=== PATIENT | male | born 1965 | race African-American/Black ===

== ENCOUNTER 2021-06-09 10:15 | Inpatient (IN) | payer OTHER ==
[~2021-06-09] VITALS: Ht 175.3 cm; Wt 88.3 kg
[~2021-06-09 10:15] MED LIST: RISPERDOL; SERT-158 PO
[2021-06-09] MEDS ORDERED: 0.9% SODIUM CHLORIDE 10 ML SYRINGE IVP PRN ×2 (10:45→15:45)
[2021-06-09 11:11] LABS: BASOPHILS % (AUTO) 0.5 % (0.0-2.0); EOSINOPHILS % (AUTO) 0 % (1.0-6.0); HEMATOCRIT 36.4 % (41-53); HEMOGLOBIN 12.4 g/dL (13.5-17.5); LYMPHOCYTES # (AUTO) 0.6 K/uL (1.0-4.8); LYMPHOCYTES % (AUTO) 11.7 % (22.0-44.0); MEAN CORPUSCULAR HEMOGLOBIN 29.6 pg (26.0-34.0); MEAN CORPUSCULAR HGB CONC 34.1 G/dL (31.0-37.0); MEAN CORPUSCULAR VOLUME 87 fL (80-100); MONOCYTES # (AUTO) 0.3 K/uL (0.1-1.0); MONOCYTES % (AUTO) 4.8 % (2.0-9.0); NEUTROPHILS # (AUTO) 4.4 K/uL (1.8-7.7); PLATELET COUNT (AUTO) 183 K/uL (150-450); RED BLOOD CELL COUNT(AUTO) 4.19 MIL/uL (4.50-5.90); RED CELL DISTRIBUTION WIDTH 13.4 % (11.5-14.5)
[2021-06-09 11:11] LABS: COVID AG,FIA SOURCE NASAL SWAB
[2021-06-09 11:24] LABS: D-DIMER 1.18 mg/L FEU (0.00-0.50); INR 1.1 (0.9-1.1); PROTHROMBIN TIME 11.6 SEC (9.4-11.6)
[2021-06-09] MEDS ORDERED: CefTRIAXone 1 GM/DEXTROSE 50 ML IV ONE (12:00)
[2021-06-09] MEDS: AZITHROMYCIN 500 MG/NS 250 ML IV ONE ×2 (12:04→12:40)
[2021-06-09 12:13] LABS: CALCIUM, TOTAL 8.5 mg/dL (8.8-10.5); CREATININE 1.58 mg/dL (0.60-1.30); POTASSIUM 4.2 mmol/L (3.5-5.1)
[2021-06-09 12:19] LABS: BILIRUBIN,TOTAL 0.6 mg/dL (0.1-1.0); TOTAL PROTEIN, SERUM 7.1 g/dL (6.4-8.2)
[2021-06-09 12:20] LABS: LACTIC ACID 1.3 mmol/L (0.4-2.0)
[2021-06-09] MEDS: VANCOMYCIN HCL 1 GM/D5% WATER 200 ML IV ONE ×2 (12:21→13:29)
[2021-06-09 12:27] LABS: INFLUENZA TYPE A NEGATIVE FOR TYPE A (NEGATIVE); INFLUENZA TYPE B NEGATIVE FOR TYPE B (NEGATIVE)
[2021-06-09] MEDS ORDERED: IOHEXOL 350 MG/ML 100 ML VIAL ONE (12:35)
[2021-06-09] MEDS ORDERED: SODIUM CHLORIDE 0.9% 100 ML ONE (12:35)
[2021-06-09] MEDS ORDERED: SODIUM CHLORIDE 0.9% 1,000 ML IV ONE (13:00)
[2021-06-09 15:22] LABS: APPEARANCE,URINE CLEAR (CLEAR); BILIRUBIN,URINE NEGATIVE (NEGATIVE); GLUCOSE, URINE (UA) NEGATIVE (NEGATIVE); KETONES,URINE TRACE mg/dL (NEGATIVE); LEUKOCYTE ESTERASE ,URINE NEGATIVE (NEGATIVE); NITRATE,URINE NEGATIVE (NEGATIVE); OCCULT BLOOD,URINE NEGATIVE (NEGATIVE); PH,URINE 5.5 (5.0-8.0); PROTEIN,URINE NEGATIVE (NEGATIVE)
[2021-06-09] MEDS ORDERED: ACETAMINOPHEN 325 MG TABLET PO PRN ×2 (15:45→17:00)
[2021-06-09 16:45] VITALS: BP 119/74
[2021-06-09] MEDS ORDERED: BISACODYL 10 MG RECTAL RECTAL SUPPOSITORY PR PRN (17:00)
[2021-06-09] MEDS ORDERED: ONDANSETRON HCL 4 MG/2 ML VIAL IVP PRN (17:00)
[2021-06-09] MEDS ORDERED: *CLINICAL-LEVOFLOXACIN IVPB DOSING CLINICAL ONE (17:00)
[2021-06-09] MEDS ORDERED: MAGNESIUM HYDROXIDE SUSPENSION 30 ML UDCUP PO PRN (17:00)
[2021-06-09] MEDS ORDERED: ZOLPIDEM TARTRATE 5 MG TABLET PO PRN (17:00)
[2021-06-09] MEDS ORDERED: MORPHINE SULFATE 2 MG/ML SYRINGE IVP PRN (17:00)
[2021-06-09 17:46] LABS: C-REACTIVE PROTEIN QUANT 21.58 mg/dL (0.00-0.30)
[2021-06-09 19:13] LABS: D-DIMER 1.4 mg/L FEU (0.00-0.50)
[2021-06-09 20:30] VITALS: BP 144/67
[2021-06-09] MEDS: DOCUSATE SODIUM 100 MG CAPSULE PO SCH (21:21)
[2021-06-09 23:40] VITALS: BP 141/70
[2021-06-10] MEDS: HEPARIN SODIUM,PORCINE 5,000 UNITS/ML VIAL SQ SCH ×3 (00:22→15:34)
[2021-06-10 04:00] VITALS: BP 133/64
[2021-06-10] MEDS: LEVOFLOXACIN 750 MG/D5% WATER 150 ML IV SCH (05:59)
[2021-06-10 06:45] LABS: HEMATOCRIT 35.4 % (41-53); HEMOGLOBIN 12.6 g/dL (13.5-17.5); MEAN CORPUSCULAR HEMOGLOBIN 30.6 pg (26.0-34.0); MEAN CORPUSCULAR HGB CONC 35.6 G/dL (31.0-37.0); MEAN CORPUSCULAR VOLUME 86 fL (80-100); PLATELET COUNT (AUTO) 190 K/uL (150-450); RED BLOOD CELL COUNT(AUTO) 4.11 MIL/uL (4.50-5.90); RED CELL DISTRIBUTION WIDTH 13.7 % (11.5-14.5)
[2021-06-10 07:05] LABS: ALANINE AMINOTRANSFERASE 19 U/L (12-78); ALBUMIN 2.6 g/dL (3.4-5.0); ALKALINE PHOSPHATASE 84 U/L (46-116); ANION GAP 9 mmol/L (8-16); ASPARTATE AMINOTRANSFERASE 19 U/L (15-37); BILIRUBIN,TOTAL 0.6 mg/dL (0.1-1.0); CALCIUM, TOTAL 8.5 mg/dL (8.8-10.5); CARBON DIOXIDE 28 mmol/L (22-29); CHLORIDE 97 mmol/L (98-107); CREATININE 1.37 mg/dL (0.60-1.30); GLOMERULAR FILTR. RATE CALC > 60 mL/min (>60); GLUCOSE,RANDOM 104 mg/dL (70-110); POTASSIUM 3.6 mmol/L (3.5-5.1); SODIUM SERUM 134 mmol/L (136-145); TOTAL PROTEIN, SERUM 7.3 g/dL (6.4-8.2); UREA NITROGEN, BLOOD 21 mg/dL (7-18)
[2021-06-10 07:13] VITALS: BP 108/72
[2021-06-10 08:20] LABS: BAND NEUTROPHILS % (MANUAL) 37 % (0-5); LYMPHOCYTES % (MANUAL) 14 % (22-44); MONOCYTES % (MANUAL) 1 % (2-9); SEGMENTED NEUTROPHILS % 48 % (40-70)
[2021-06-10] MEDS: DOCUSATE SODIUM 100 MG CAPSULE PO SCH ×2 (08:21→22:05)
[2021-06-10] MEDS: SERTRALINE HCL 50 MG TABLET PO SCH (08:21)
[2021-06-10] MEDS: PANTOPRAZOLE SODIUM 40 MG DR TABLET PO SCH (08:21)
[2021-06-10] MEDS: HYDROCODONE/ACETAMINOPHEN 5-325 MG TABLET PO PRN (11:15)
[2021-06-10 11:16] VITALS: BP 117/73
[2021-06-10] MEDS: HYDROCODONE/CHLORPHEN POLIS 10-8 MG/5 ML ORAL.SYG PO PRN ×2 (12:02→22:05)
[2021-06-10 15:29] VITALS: BP 108/74
[2021-06-10 20:01] LABS: GLUCOMETER DEV NAME(LOC) 5N.3; GLUCOSE,POINT OF CARE 137 MG/DL (70-110)
[2021-06-10 20:07] VITALS: BP 129/83
[2021-06-11 00:12] VITALS: BP 97/67
[2021-06-11] MEDS: HEPARIN SODIUM,PORCINE 5,000 UNITS/ML VIAL SQ SCH ×4 (00:20→23:35)
[2021-06-11] MEDS: LEVOFLOXACIN 750 MG/D5% WATER 150 ML IV SCH (05:07)
[2021-06-11 05:59] VITALS: BP 115/60
[2021-06-11 08:07] VITALS: BP 108/62
[2021-06-11] MEDS: PANTOPRAZOLE SODIUM 40 MG DR TABLET PO SCH (08:11)
[2021-06-11] MEDS: DOCUSATE SODIUM 100 MG CAPSULE PO SCH ×2 (08:11→21:10)
[2021-06-11] MEDS: SERTRALINE HCL 50 MG TABLET PO SCH (08:12)
[2021-06-11] MEDS ORDERED: DEXAMETHASONE 4 MG TABLET PO SCH (09:00)
[2021-06-11 11:16] VITALS: BP 126/79
[2021-06-11 16:15] VITALS: BP 128/70
[2021-06-11 21:08] VITALS: BP 116/75
[2021-06-11] MEDS: HYDROCODONE/CHLORPHEN POLIS 10-8 MG/5 ML ORAL.SYG PO PRN (21:10)
[2021-06-12 01:43] VITALS: BP 149/68
[2021-06-12] MEDS: HYDROCODONE/ACETAMINOPHEN 5-325 MG TABLET PO PRN (03:57)
[2021-06-12 04:47] VITALS: BP 127/80
[2021-06-12] MEDS: LEVOFLOXACIN 750 MG/D5% WATER 150 ML IV SCH (05:01)
[2021-06-12 07:22] VITALS: BP 133/93
[2021-06-13 15:06] LABS: LEGIONELLA PNEUMO AG URINE Negative (Negative)
[2021-06-13 16:07] LABS: S PNEUMO SOURCE Urine; STREP PNEUMONIAE AG URINE Negative (Negative)
== END 2021-06-12 07:40 | disposition left against medical advice (07) | DRG 139 ==
LOC: EMS 10:35 → 5N 14:53
PROVIDERS: ADMIT Internal Medicine; ATTEND Internal Medicine
DX: J18.9 Pneumonia, unspecified organism (principal); J96.01 Acute respiratory failure with hypoxia; R65.11 Systemic inflammatory response syndrome (SIRS) of non-infectious origin with acute organ dysfunction; D68.59 Other primary thrombophilia; E46 Unspecified protein-calorie malnutrition; J47.0 Bronchiectasis with acute lower respiratory infection; N17.9 Acute kidney failure, unspecified; Z20.822 Contact with and (suspected) exposure to COVID-19; I10 Essential (primary) hypertension; Z53.21 Procedure and treatment not carried out due to patient leaving prior to being seen by health care provider; Z53.29 Procedure and treatment not carried out because of patient's decision for other reasons; Z78.9 Other specified health status; Z87.891 Personal history of nicotine dependence; Z68.28 Body mass index [BMI] 28.0-28.9, adult; Z79.899 Other long term (current) drug therapy
CPT/HCPCS: 71045; 71275; 80053; 81003; 82550; 82728; 82962; 83605; 83615; 83880; 84145; 84484; 85025; 85379; 85384; 85610; 85730; 86140; 87015; 87040; 87206; 87449; 87804; 87899; 93005; 93970; 99285; J0456; J0696; J1644; J1956; J2270; J3370; J7050; J8540; Q9967; 36415-L1; 36415-TC; U0003

== ENCOUNTER 2021-06-12 16:54 | Inpatient (IN) | payer OTHER ==
[~2021-06-12] VITALS: Ht 180.3 cm; Wt 84.1 kg
[2021-06-12 20:13] LABS: COVID AG,FIA SOURCE NASOPHARYNGEAL
[2021-06-12] MEDS ORDERED: *CLINICAL-LEVOFLOXACIN IVPB DOSING CLINICAL ONE (20:45)
[2021-06-12] MEDS ORDERED: ONDANSETRON HCL 4 MG/2 ML VIAL IVP PRN (21:00)
[2021-06-12] MEDS ORDERED: MAGNESIUM HYDROXIDE SUSPENSION 30 ML UDCUP PO PRN (21:00)
[2021-06-12] MEDS ORDERED: ZOLPIDEM TARTRATE 5 MG TABLET PO PRN (21:00)
[2021-06-12] MEDS ORDERED: ACETAMINOPHEN 325 MG TABLET PO PRN (21:00)
[2021-06-12 21:12] VITALS: BP 136/87
[2021-06-12] MEDS ORDERED: LEVOFLOXACIN 750 MG/D5% WATER 150 ML IV ONE (21:15)
[2021-06-12] MEDS ORDERED: INFLUENZA VIRUS VACCINE QVS 2021-22 (6MO+)/PF 60 MCG/0.5 ML SYRINGE IM. ONE (22:00)
[2021-06-12] MEDS ORDERED: SODIUM CHLORIDE 0.9% 500 ML IV ONE (22:36)
[2021-06-13] MEDS: BENZONATATE 100 MG CAPSULE PO PRN (03:23)
[2021-06-13] MEDS: OxyCODONE HCL/ACETAMINOPHEN 5-325 MG TABLET PO PRN (03:27)
[2021-06-13 04:28] VITALS: BP 113/62
[2021-06-13 08:46] VITALS: BP 145/81
[2021-06-13 09:56] LABS: ANION GAP 6 mmol/L (8-16); CARBON DIOXIDE 29 mmol/L (22-29); CHLORIDE 102 mmol/L (98-107); GLOMERULAR FILTR. RATE CALC > 60 mL/min (>60); GLUCOSE,RANDOM 108 mg/dL (70-110); POTASSIUM 3.5 mmol/L (3.5-5.1); SODIUM SERUM 137 mmol/L (136-145); UREA NITROGEN, BLOOD 16 mg/dL (7-18)
[2021-06-13] MEDS: FAMOTIDINE 20 MG TABLET PO SCH (10:54)
[2021-06-13] MEDS ORDERED: 0.9% SODIUM CHLORIDE 5 ML NEB SOLUTION NEB ONE (12:09)
[2021-06-13] MEDS ORDERED: SODIUM CHLORIDE 3% 15 ML NEB SOLUTION NEB ONE (12:09)
[2021-06-13 12:53] VITALS: BP 126/79
[2021-06-13 20:29] VITALS: BP 129/86
[2021-06-13] MEDS ORDERED: LEVOFLOXACIN 750 MG/D5% WATER 150 ML IV SCH (22:00)
[2021-06-14 01:46] VITALS: BP 145/87
[2021-06-14 04:54] VITALS: BP 128/76
[2021-06-14 08:26] VITALS: BP 129/82
[2021-06-14] MEDS: FAMOTIDINE 20 MG TABLET PO SCH (08:56)
[2021-06-14] MEDS: BENZONATATE 100 MG CAPSULE PO PRN (09:06)
[2021-06-14] MEDS: OxyCODONE HCL/ACETAMINOPHEN 5-325 MG TABLET PO PRN (09:06)
[2021-06-14 14:07] VITALS: BP 132/74
== END 2021-06-14 16:30 | disposition left against medical advice (07) | DRG 139 ==
LOC: EMS 16:57 → 6S 20:42
PROVIDERS: ADMIT Internal Medicine; ATTEND Internal Medicine
DX: J18.9 Pneumonia, unspecified organism (principal); J96.01 Acute respiratory failure with hypoxia; R65.11 Systemic inflammatory response syndrome (SIRS) of non-infectious origin with acute organ dysfunction; N17.9 Acute kidney failure, unspecified; D68.59 Other primary thrombophilia; Z20.822 Contact with and (suspected) exposure to COVID-19; J47.0 Bronchiectasis with acute lower respiratory infection
CPT/HCPCS: 80048; 87015; 87081; 87206; 87556; 93005; 94640; 99285; J1956; J7040; 36415-L1; 36415-TC

== ENCOUNTER 2024-08-25 02:29 | Inpatient (IN) | payer OTHER ==
[~2024-08-25] VITALS: Ht 180.3 cm; Wt 84.0 kg
[~2024-08-25 02:29] MED LIST changes: +LEVE-71 PO; +LOSA100T59 PO; -RISPERDOL; -SERT-158 PO
[2024-08-25] MEDS ORDERED: VANCOMYCIN 1GM/WATER(PEG/NADA) 200 ML IV ONE (02:45)
[2024-08-25 03:20] LABS: BASOPHILS % (AUTO) 0.6 % (0.0-2.0); EOSINOPHILS % (AUTO) 2.9 % (1.0-6.0); HEMATOCRIT 36.3 % (41-53); LYMPHOCYTES # (AUTO) 1.5 K/uL (1.0-4.8); LYMPHOCYTES % (AUTO) 36.6 % (22.0-44.0); MEAN CORPUSCULAR HEMOGLOBIN 28.6 pg (26.0-34.0); MEAN CORPUSCULAR HGB CONC 32.9 G/dL (31.0-37.0); MEAN CORPUSCULAR VOLUME 87 fL (80-100); MONOCYTES # (AUTO) 0.4 K/uL (0.1-1.0); MONOCYTES % (AUTO) 10.3 % (2.0-9.0); NEUTROPHILS % (AUTO) 49.6 % (40.0-70.0); PLATELET COUNT (AUTO) 317 K/uL (150-450); RED BLOOD CELL COUNT(AUTO) 4.18 MIL/uL (4.50-5.90); RED CELL DISTRIBUTION WIDTH 14.5 % (11.5-14.5); WHITE BLOOD COUNT (AUTO) 4.1 K/uL (4.5-11.0)
[2024-08-25 03:28] LABS: ANION GAP 6 mmol/L (8-16); CALCIUM, TOTAL 9.3 mg/dL (8.8-10.5); CARBON DIOXIDE 31 mmol/L (22-29); CHLORIDE 101 mmol/L (98-107); CREATININE 0.99 mg/dL (0.60-1.30); GLOMERULAR FILTR. RATE CALC > 60 mL/min (>60); GLUCOSE,RANDOM 95 mg/dL (70-110); POTASSIUM 3.9 mmol/L (3.5-5.1); SODIUM SERUM 138 mmol/L (136-145); UREA NITROGEN, BLOOD 9 mg/dL (7-18)
[2024-08-25 03:37] LABS: LACTIC ACID 0.7 mmol/L (0.4-2.0)
[2024-08-25] MEDS: SODIUM CHLORIDE 0.9% 1,000 ML IV ONE ×2 (04:06→11:12)
[2024-08-25] MEDS: VANCOMYCIN HCL 1 GM/D5% WATER 200 ML IV ONE (04:07)
[2024-08-25] MEDS ORDERED: IOHEXOL 350 MG/ML 100 ML VIAL ONE (06:02)
[2024-08-25] MEDS: NITROGLYCERIN 2% (1 GM=INCH) OINTMENT PACKET TP ONE (07:33)
[2024-08-25] MEDS: AmLODIPine BESYLATE 10 MG TABLET PO ONE (07:34)
[2024-08-25] MEDS: LevETIRAcetam 500 MG TABLET PO ONE ×2 (07:34→08:30)
[2024-08-25] MEDS: LABETALOL HCL 5 MG/ML 20 ML VIAL IVP ONE (07:36)
[2024-08-25 07:43] LABS: PH,URINE DRUG SCREEN 7.5 (5.0-8.0)
[2024-08-25 07:49] LABS: AMPHET/METH SCREEN,URINE POSITIVE (NEGATIVE); BARBITURATE SCREEN, URINE NEGATIVE (NEGATIVE); BENZODIAZEPINES SCREEN,URINE NEGATIVE (NEGATIVE); CANNABINOID SCREEN,URINE POSITIVE (NEGATIVE); COCAINE SCREEN,URINE NEGATIVE (NEGATIVE); METHADONE SCREEN, URINE NEGATIVE (NEGATIVE); OPIATE SCREEN,URINE POSITIVE (NEGATIVE); PHENCYCLIDINE SCREEN,URINE NEGATIVE (NEGATIVE)
[2024-08-25 07:59] LABS: ALCOHOL, URINE DRUG SCREEN NEGATIVE (NEGATIVE)
[2024-08-25] MEDS: ALLOPURINOL 300 MG TABLET PO ONE (08:31)
[2024-08-25] MEDS ORDERED: MAGNESIUM HYDROXIDE SUSPENSION 30 ML UDCUP PO PRN (10:00)
[2024-08-25] MEDS ORDERED: ACETAMINOPHEN 325 MG TABLET PO PRN (10:00)
[2024-08-25] MEDS ORDERED: MORPHINE SULFATE 2 MG/ML SYRINGE IVP PRN (10:00)
[2024-08-25] MEDS ORDERED: BISACODYL 10 MG RECTAL RECTAL SUPPOSITORY PR PRN (10:00)
[2024-08-25] MEDS ORDERED: ONDANSETRON HCL 4 MG/2 ML VIAL IVP PRN (10:00)
[2024-08-25] MEDS ORDERED: ZOLPIDEM TARTRATE 5 MG TABLET PO PRN (10:00)
[2024-08-25 10:44] VITALS: BP 137/76; PULSE 79; RESP 18; TEMP 97.6; O2SAT 97
[2024-08-25] MEDS: LevETIRAcetam 500 MG TABLET PO SCH (11:12)
[2024-08-25] MEDS: VANCOMYCIN 750 MG/WATER(PEG) 150 ML IV ONE (11:46)
[2024-08-25] MEDS: HEPARIN SODIUM,PORCINE 5,000 UNITS/ML VIAL SQ SCH (16:23)
[2024-08-25] MEDS: VANCOMYCIN 1.25 GM/WATER(PEG) 250 ML IV SCH (20:16)
[2024-08-25] MEDS: DOCUSATE SODIUM 100 MG CAPSULE PO SCH (20:16)
[2024-08-25 20:17] VITALS: BP 156/102; PULSE 96; RESP 18; TEMP 98.1; O2SAT 97
[2024-08-25 23:19] VITALS: BP 177/100; PULSE 80; RESP 18; TEMP 98; O2SAT 97
[2024-08-25] MEDS: CloNIDine HCL 0.1 MG TABLET PO PRN (23:20)
[2024-08-26 04:48] VITALS: BP 154/98; PULSE 90; RESP 17; TEMP 97.8; O2SAT 98
[2024-08-26 07:35] LABS: BASOPHILS % (AUTO) 1.2 % (0.0-2.0); HEMATOCRIT 36.8 % (41-53); HEMOGLOBIN 12.2 g/dL (13.5-17.5); LYMPHOCYTES # (AUTO) 1.7 K/uL (1.0-4.8); LYMPHOCYTES % (AUTO) 38.5 % (22.0-44.0); MEAN CORPUSCULAR HEMOGLOBIN 28.7 pg (26.0-34.0); MEAN CORPUSCULAR VOLUME 87 fL (80-100); MONOCYTES # (AUTO) 0.4 K/uL (0.1-1.0); MONOCYTES % (AUTO) 8.3 % (2.0-9.0); NEUTROPHILS # (AUTO) 2.1 K/uL (1.8-7.7); PLATELET COUNT (AUTO) 307 K/uL (150-450); RED BLOOD CELL COUNT(AUTO) 4.24 MIL/uL (4.50-5.90); RED CELL DISTRIBUTION WIDTH 14.5 % (11.5-14.5); WHITE BLOOD COUNT (AUTO) 4.4 K/uL (4.5-11.0)
[2024-08-26 07:44] LABS: ANION GAP 7 mmol/L (8-16); CALCIUM, TOTAL 9.2 mg/dL (8.8-10.5); CARBON DIOXIDE 27 mmol/L (22-29); CHLORIDE 102 mmol/L (98-107); CREATININE 0.96 mg/dL (0.60-1.30); GLOMERULAR FILTR. RATE CALC > 60 mL/min (>60); GLUCOSE,RANDOM 94 mg/dL (70-110); POTASSIUM 3.8 mmol/L (3.5-5.1); SODIUM SERUM 136 mmol/L (136-145); UREA NITROGEN, BLOOD 9 mg/dL (7-18)
[2024-08-26] MEDS: PANTOPRAZOLE SODIUM 40 MG DR TABLET PO SCH (07:44)
[2024-08-26] MEDS: AmLODIPine BESYLATE 10 MG TABLET PO ONE (07:45)
[2024-08-26 08:17] VITALS: BP 144/92; PULSE 94; RESP 18; TEMP 97.9; O2SAT 99
[2024-08-26] MEDS: HYDROCODONE/ACETAMINOPHEN 5-325 MG TABLET PO PRN (15:37)
[2024-08-26 19:30] VITALS: BP 150/95; PULSE 90; RESP 20; TEMP 97.9; O2SAT 97
[2024-08-27 04:25] VITALS: BP 158/90; PULSE 87; RESP 19; TEMP 98.1; O2SAT 99
[2024-08-27 07:37] LABS: BASOPHILS % (AUTO) 1.2 % (0.0-2.0); EOSINOPHILS % (AUTO) 2.5 % (1.0-6.0); HEMATOCRIT 37.8 % (41-53); HEMOGLOBIN 12.7 g/dL (13.5-17.5); LYMPHOCYTES # (AUTO) 1.7 K/uL (1.0-4.8); LYMPHOCYTES % (AUTO) 40.1 % (22.0-44.0); MEAN CORPUSCULAR HGB CONC 33.6 G/dL (31.0-37.0); MEAN CORPUSCULAR VOLUME 87 fL (80-100); MONOCYTES # (AUTO) 0.5 K/uL (0.1-1.0); MONOCYTES % (AUTO) 10.7 % (2.0-9.0); NEUTROPHILS # (AUTO) 1.9 K/uL (1.8-7.7); NEUTROPHILS % (AUTO) 45.5 % (40.0-70.0); PLATELET COUNT (AUTO) 311 K/uL (150-450); RED BLOOD CELL COUNT(AUTO) 4.38 MIL/uL (4.50-5.90); RED CELL DISTRIBUTION WIDTH 14.6 % (11.5-14.5); WHITE BLOOD COUNT (AUTO) 4.3 K/uL (4.5-11.0)
[2024-08-27 07:47] LABS: ANION GAP 8 mmol/L (8-16); CALCIUM, TOTAL 9.5 mg/dL (8.8-10.5); CARBON DIOXIDE 27 mmol/L (22-29); CHLORIDE 103 mmol/L (98-107); CREATININE 0.87 mg/dL (0.60-1.30); GLOMERULAR FILTR. RATE CALC > 60 mL/min (>60); GLUCOSE,RANDOM 92 mg/dL (70-110); POTASSIUM 4.1 mmol/L (3.5-5.1); SODIUM SERUM 138 mmol/L (136-145); UREA NITROGEN, BLOOD 12 mg/dL (7-18)
[2024-08-27] MEDS: LIDOCAINE 2% 6 ML JELLY TP ONE (08:00)
[2024-08-27] MEDS: LOSARTAN POTASSIUM 50 MG TABLET PO SCH (08:21)
[2024-08-27 09:31] VITALS: BP 171/98; PULSE 62; RESP 18; TEMP 97.8; O2SAT 97
[2024-08-27 12:29] VITALS: BP 149/95; PULSE 80; RESP 18; O2SAT 98
[2024-08-27] MEDS: NIFEdipine 30 MG ER TABLET PO SCH (14:14)
[2024-08-27 20:42] VITALS: BP 144/94; PULSE 85; RESP 18; TEMP 98.1; O2SAT 98
[2024-08-28 04:19] VITALS: BP 146/88; PULSE 92; RESP 18; TEMP 97.9; O2SAT 96
[2024-08-28 07:30] VITALS: BP 154/95; PULSE 89; RESP 20; TEMP 97.7; O2SAT 98
[2024-08-28 08:16] LABS: BASOPHILS % (AUTO) 1.7 % (0.0-2.0); EOSINOPHILS % (AUTO) 3.7 % (1.0-6.0); HEMATOCRIT 38.8 % (41-53); HEMOGLOBIN 12.8 g/dL (13.5-17.5); LYMPHOCYTES # (AUTO) 1.6 K/uL (1.0-4.8); LYMPHOCYTES % (AUTO) 37.2 % (22.0-44.0); MEAN CORPUSCULAR HEMOGLOBIN 28.6 pg (26.0-34.0); MEAN CORPUSCULAR VOLUME 87 fL (80-100); MONOCYTES # (AUTO) 0.4 K/uL (0.1-1.0); MONOCYTES % (AUTO) 8.8 % (2.0-9.0); NEUTROPHILS # (AUTO) 2.1 K/uL (1.8-7.7); NEUTROPHILS % (AUTO) 48.6 % (40.0-70.0); PLATELET COUNT (AUTO) 302 K/uL (150-450); RED BLOOD CELL COUNT(AUTO) 4.48 MIL/uL (4.50-5.90); RED CELL DISTRIBUTION WIDTH 14.4 % (11.5-14.5); WHITE BLOOD COUNT (AUTO) 4.3 K/uL (4.5-11.0)
[2024-08-28 08:29] LABS: ANION GAP 8 mmol/L (8-16); CALCIUM, TOTAL 9.3 mg/dL (8.8-10.5); CARBON DIOXIDE 26 mmol/L (22-29); CHLORIDE 103 mmol/L (98-107); CREATININE 0.88 mg/dL (0.60-1.30); GLOMERULAR FILTR. RATE CALC > 60 mL/min (>60); GLUCOSE,RANDOM 93 mg/dL (70-110); POTASSIUM 4.2 mmol/L (3.5-5.1); SODIUM SERUM 137 mmol/L (136-145); UREA NITROGEN, BLOOD 14 mg/dL (7-18); VANCOMYCIN,RANDOM 13.7 mcg/mL (25.0-50.0)
[2024-08-28] MEDS: AMOX TR/POT CLAV 875 MG/125 MG TABLET PO SCH (11:45)
[2024-08-28 19:50] VITALS: BP 142/91; PULSE 91; RESP 18; TEMP 98.1; O2SAT 98
[2024-08-29 04:45] VITALS: BP 160/100; PULSE 84; RESP 18; TEMP 97.3; O2SAT 98
[2024-08-29 06:30] VITALS: BP 145/96; PULSE 89; RESP 20; O2SAT 97
[2024-08-29 07:24] LABS: ANION GAP 7 mmol/L (8-16); CALCIUM, TOTAL 9.4 mg/dL (8.8-10.5); CARBON DIOXIDE 28 mmol/L (22-29); CHLORIDE 105 mmol/L (98-107); CREATININE 0.88 mg/dL (0.60-1.30); GLOMERULAR FILTR. RATE CALC > 60 mL/min (>60); GLUCOSE,RANDOM 96 mg/dL (70-110); POTASSIUM 4.4 mmol/L (3.5-5.1); SODIUM SERUM 140 mmol/L (136-145); UREA NITROGEN, BLOOD 16 mg/dL (7-18)
[2024-08-29 09:15] VITALS: BP 152/99; PULSE 80; RESP 18; TEMP 98.1; O2SAT 98
[2024-08-29] MEDS: NIFEdipine 30 MG ER TABLET PO ONE (11:56)
[2024-08-29 12:44] VITALS: BP 151/93; PULSE 86; RESP 18; TEMP 98.1; O2SAT 99
[2024-08-29 20:21] VITALS: BP 126/84; PULSE 93; RESP 20; TEMP 98.2; O2SAT 96
[2024-08-29] MEDS: VANCOMYCIN HCL 1.25 GM in DEXTROSE 5%-WATER 250 ML IV SCH (20:45)
[2024-08-30 04:00] VITALS: BP 147/94; PULSE 94; RESP 18; TEMP 97.7; O2SAT 98
[2024-08-30 07:28] VITALS: BP 132/83; PULSE 83; RESP 18; TEMP 98.1; O2SAT 100
[2024-08-30] MEDS: NIFEdipine 30 MG ER TABLET PO SCH (08:46)
[2024-08-30 09:06] LABS: ANION GAP 8 mmol/L (8-16); CALCIUM, TOTAL 9.3 mg/dL (8.8-10.5); CARBON DIOXIDE 27 mmol/L (22-29); CHLORIDE 103 mmol/L (98-107); CREATININE 0.87 mg/dL (0.60-1.30); GLOMERULAR FILTR. RATE CALC > 60 mL/min (>60); GLUCOSE,RANDOM 89 mg/dL (70-110); POTASSIUM 4.2 mmol/L (3.5-5.1); SODIUM SERUM 138 mmol/L (136-145); UREA NITROGEN, BLOOD 21 mg/dL (7-18)
[2024-08-30] MEDS ORDERED: AMOX-457 PO (14:32)
[2024-08-30] MEDS ORDERED: CLIN300C58 PO (14:36)
[2024-08-30] MEDS ORDERED: NIFE-129 PO (14:37)
[2024-08-30] MEDS ORDERED: ACET-2247 PO (14:38)
[2024-08-30] MEDS: CLINDAMYCIN HCL 300 MG CAPSULE PO SCH (16:50)
== END 2024-08-30 18:28 | DRG 603 ==
LOC: EMS 02:30 → EDH 07:27 → 6S 10:23
PROVIDERS: ADMIT Internal Medicine; ATTEND Internal Medicine
PROC: 0HBLXZZ Excision of Left Lower Leg Skin, External Approach (ICD-10-PCS; principal; 2024-08-26)
PROC: 0HBKXZZ Excision of Right Lower Leg Skin, External Approach (ICD-10-PCS; 2024-08-26)
DX: L03.115 Cellulitis of right lower limb (principal); L97.829 Non-pressure chronic ulcer of other part of left lower leg with unspecified severity; I10 Essential (primary) hypertension; D64.9 Anemia, unspecified; G40.909 Epilepsy, unspecified, not intractable, without status epilepticus; L03.116 Cellulitis of left lower limb; F15.90 Other stimulant use, unspecified, uncomplicated; D72.819 Decreased white blood cell count, unspecified; F11.90 Opioid use, unspecified, uncomplicated; Z79.899 Other long term (current) drug therapy; Z87.891 Personal history of nicotine dependence
CPT/HCPCS: 73701; 80048; 80202; 80307; 83605; 85025; 87040; 87070; 87186; 87205; 96365; 97162; 99285; J1644; J3370; J3490; J7030; J7060